=== PATIENT | female | born 1955 | race Caucasian/White ===

== ENCOUNTER 2021-06-07 08:51 | Day surgery (SDC) | payer BC ==
[~2021-06-07] VITALS: Ht 162.6 cm; Wt 67.7 kg
[~2021-06-07 08:51] MED LIST: LEVSOD100 PO; LEVSOD75 PO; LIOT25 PO; LIOT5 PO; LORA.5 PO; VENL150ER PO
--- NOTE | 2021-06-07 09:33 | NUR ---
[facility] in [facility] warming gown applied. Patient states colon prep results clear. History, Chart, Medications and Allergies reviewed before start of procedure.Lungs clear T/O to Auscultation. Patient confirms NPO status and agrees with scheduled surgery. Pre-Op teaching done. Pt verbalizes understanding. Patient States Post-Procedure ride home has been arranged. Patient reports completing Chlorhexadine shower X2 prior to admission to hospital.
--- NOTE | 2021-06-07 09:37 | NUR ---
06/07/21 0937 Irene Glez History, Chart, Medications and Allergies reviewed before start of procedure. Patient confirms NPO status and agrees with scheduled surgery. 3-LEAD EKG REVIEWED WITH PHYSICIAN PRIOR TO START OF PROCEDURE. MONITOR INTACT WITH CONTINUOUS PULSE OXIMETRY AND INTERMITTENT BP. PATIENT DETERMINED TO BE ASA APPROPRIATE FOR PROPOFOL SEDATION PRIOR TO START OF PROCEDURE BY DR. HENDRIX.
--- NOTE | 2021-06-07 10:36 | NUR ---
Patient up to Ambulate independently. Gait steady. Discharge instructions reviewed with patient. Patient verbalizes understanding. Copy given to patient to take home. Discharged via wheelchair to private car for ride home.
== END 2021-06-07 22:49 | disposition home or self-care (01) ==
LOC: ORSCMMR 08:51 → ORD 09:30 → ORSCMMR 09:30
PROVIDERS: Internal Medicine Gastroenterology
PROC: 0DBL8ZX Excision of Transverse Colon, Via Natural or Artificial Opening Endoscopic, Diagnostic (ICD-10-PCS; principal; 2021-06-07 09:30)
PROC: 0DBH8ZX Excision of Cecum, Via Natural or Artificial Opening Endoscopic, Diagnostic (ICD-10-PCS; principal; 2021-06-07 09:30)
PROC: 0DBN8ZX Excision of Sigmoid Colon, Via Natural or Artificial Opening Endoscopic, Diagnostic (ICD-10-PCS; principal; 2021-06-07 09:30)
DX: Z12.11 Encounter for screening for malignant neoplasm of colon (principal); Z86.010 Personal history of colon polyps; D12.0 Benign neoplasm of cecum; D12.3 Benign neoplasm of transverse colon; D12.5 Benign neoplasm of sigmoid colon; K64.8 Other hemorrhoids; E03.9 Hypothyroidism, unspecified; F32.A Depression, unspecified; Z87.891 Personal history of nicotine dependence; Z79.899 Other long term (current) drug therapy
CPT/HCPCS: 88305; J2704; J7120

== ENCOUNTER → 2023-02-14 | Outpatient (CLI) | payer BC | LOC: LAB SHORT 15:03 → LAB 15:03 | DX: B35.4 Tinea corporis (principal); L81.4 Other melanin hyperpigmentation; L82.1 Other seborrheic keratosis; D18.01 Hemangioma of skin and subcutaneous tissue; D48.5 Neoplasm of uncertain behavior of skin; L98.8 Other specified disorders of the skin and subcutaneous tissue | CPT/HCPCS: 87102 ==